=== PATIENT | female | born 1955 | race African-American/Black ===

== ENCOUNTER 2017-08-14 22:30 | Inpatient (IN) | payer BC ==
[~2017-08-14] VITALS: Ht 157.5 cm; Wt 61.7 kg
--- NOTE | ~2017-08-14 | P ---
[facility] [place] [address] PROCEDURE REPORT Name: LENARD BUSTOS Room #: 207-P [facility] IN M.R.#: [id number] Admission: 08/15/17 Attend Phys: Brain Morgan MD Discharge: 08/16/17 Date of : 55 Report #: [id number] THIS REPORT FOR: //name// CC: Brain Santillan DATE OF SERVICE: 08/16/2017 PROCEDURE: Colonoscopy with biopsy. INDICATION FOR PROCEDURE: Painless hematochezia of undetermined etiology and family history of colon cancer in her mother and maternal grandmother. Informed consent for this procedure was obtained prior to the administration of any medication. The risks of the procedure which include bleeding, perforation, infection, complications of sedation and the possibility I could miss something have been explained to the patient. She has indicated her consent by signing. DESCRIPTION OF PROCEDURE: Propofol was slowly titrated before and during this procedure for patient comfort by the anesthesia service. The zeroboundn colonoscope was introduced through the anal sphincter and advanced under direct visualization to the terminal ileum. Findings are noted on withdrawal of the scope. The terminal ileum mucosa appears normal. Cecum, normal mucosa. Ascending colon, a single uncomplicated diverticulum is noted in the ascending colon. Retroflex view in the ascending colon did not reveal any abnormalities. Hepatic flexure, normal mucosa. Transverse colon, normal mucosa. At the splenic flexure, there was a small 3-4 mm polyp removed in toto with the regular biopsy forceps and sent to pathology lab. Good hemostasis was noted after that biopsy. There was also some nodular mucosa at this area. Biopsies were obtained for histopathology. Good hemostasis was noted after those biopsies. Descending colon, uncomplicated diverticulosis. Sigmoid colon, uncomplicated diverticulosis. At approximately 28 cm in the sigmoid colon, there was a small 3-4 mm polyp removed in toto with the regular biopsy forceps and sent to pathology lab. Good hemostasis was noted after that polypectomy and as mentioned, multiple diverticula noted in the distal sigmoid colon. Rectum, normal mucosa. Retroflex view did not reveal any further abnormalities. The scope was withdrawn. The patient went to the recovery area in stable condition. She tolerated the procedure well. IMPRESSION: 1. Uncomplicated left-sided diverticulosis and a single uncomplicated diverticulum in the right colon. [address] [address] PROCEDURE REPORT Name: LENARD BUSTOS Room #: 207-P [facility] IN M.R.#: [id number] Admission: 08/15/17 Attend Phys: Brain Morgan MD Discharge: 08/16/17 Date of : 55 Report #: [id number] 2. Two polyps removed, one from the splenic flexure and one from 28 cm from the anal verge and sent to pathology. 3. Nodular splenic flexure, biopsied. RECOMMENDATIONS: To await the path report. We will monitor H and H closely and observe for further GI blood loss. I think that most likely the source of the bleeding that she had that was painless was likely the diverticulosis and it is not bleeding at this time. <ELECTRONICALLY SIGNED> By: Ryann Hall DO 08/17/17 0017 [id number] [id number] Ryann Hall DO /nt
--- NOTE | ~2017-08-14 | S ---
[facility] [place] [address] SURGICAL PATH RPT PROCEDURE Name: LIVIA TATE Room #: 207-P DIS IN M.R.#: [id number] Admission: 08/15/17 Date of : 55 Discharge: 08/16/17 Report #: [id number] Path Case #: [id number] PATHOLOGY REPORT COLLECTION DATE: 08/16/2017 RECEIVED DATE: 08/16/2017 SUBMITTING PHYS: Dr. Ryann Hall OTHER PHYS: Dr. Phoenix Mak SPECIMEN(S) RECEIVED: A.Splenic flexure polyp B.Small nodules at splenic flexure C.Colon polyp at 28 cm * * * * * * * * * * * * FINAL DIAGNOSIS: A. Colon, "splenic flexure", biopsy: - Colonic mucosa with moderate chronic inflammation and mild hyperplastic changes. B. Colon, "small nodule at splenic flexure", biopsy: - Colonic mucosa with moderate chronic inflammation, mild hyperplastic changes, and submucosal lymphoid aggregate. C. Colon, 28 cm, biopsy: - Hyperplastic polyp. - Mild to moderate chronic inflammation. (SKM:jazlyn; 08/17/2017) PATHOLOGIST: Loren Raymundo M.D. REPORT ELECTRONICALLY SIGNED BY: Loren Raymundo M.D. DATE/TIME: 08/17/2017 14:07 * * * * * * * * * * * * GROSS PATHOLOGY: A. Received in formalin labeled "Livia Tate and polyp splenic flexure," is a segment of colon soft tissue measuring 0.4 x 0.2 cm in maximum dimension. The specimen is submitted entirely in cassette A1. B. The specimen is received in formalin, labeled "Livia Tate and small nodule at splenic flexure", is a colon soft tissue 0.5 x 0.3 x 0.2 cm, entirely submitted in B1. C. Received in formalin labeled "Livia Tate and biopsy of polyp at 28 cm," is a segment of colon soft tissue measuring 0.3 x 0.2 cm in maximum dimension. The specimen is submitted entirely in cassette C1. (SWS; 08/16/2017) [address] [address] [place] [address] SURGICAL PATH RPT PROCEDURE Name: LIVIA TATE Room #: 207-P [facility] IN M.R.#: [id number] Admission: 08/15/17 Date of : 55 Discharge: 08/16/17 Report #: [id number] Path Case #: [id number] CLINICAL HISTORY: Hematochezia, anemia INITIAL CPT CODE(S): A; 31296 B; 89013 C; 39876 Professional services performed by [facility] at [address], [place] [address] Technical services performed by [facility] at [address] [place] [address], [facility] [address] [address]. [facility] [address] [place] [address] PHONE: [phone] DIRECTOR: Albert W. Shukri, M.D. * * * END OF REPORT * * *
--- NOTE | ~2017-08-14 | HC ---
[facility] [place] [address] CONSULTATION Name: LENARD BUSTOS Room #: 207-P ADM IN M.R.#: [id number] Admission: 08/15/17 Attend Phys: Brain Morgan MD Discharge: Date of : 55 Report #: [id number] THIS REPORT FOR: //name// CC: Brain Mak MD DATE OF SERVICE: 08/15/2017 PATIENT OF: Dr. Ayan Mak and Dr. Brain Morgan. CHIEF COMPLAINT: This is a very pleasant 62-year-old -[place] female whom I am asked to evaluate for possible etiologies of painless hematochezia. The patient states that her bleeding started last night after she had a bout of diarrhea. There was no pain involved. She has had several stools through the night. Her hemoglobin was 9.8 on admission and she dropped down to 7.3 and received 1 unit of packed cells and this morning, she is up to 8.4. She has not had any bloody stools for 8 hours at this time. PAST MEDICAL HISTORY: Significant for chronic kidney disease. She has a creatinine of 4.0 and apparently has been following with a senior mechanical project engineer who has since retired. She says the last time she saw him was 3-4 months ago. She does not know what her creatinine level was at that time. She has a history of asthma, hypertension, and hyperlipidemia. PAST SURGICAL HISTORY: Significant for removal of a cyst on her right dorsal foot. ALLERGIES: No known drug allergies. MEDICATIONS: Prior to admission included only lisinopril. SOCIAL HISTORY: She does not smoke. She does not drink alcohol. She has never had a blood transfusion until today. FAMILY HISTORY: Significant for colon cancer in her mother and in her maternal grandmother. There is no history of Crohn's disease or ulcerative colitis. REVIEW OF SYSTEMS: She denies any dysphagia, odynophagia, gastroesophageal reflux, hiatal hernia, or peptic ulcer disease. She has had some nausea, but no vomiting. Her weight has gone down without any explanation recently. She denies any hematemesis or melena. She has had hematochezia that is painless as described above. She has never had a colonoscopy, so she does not know if she has had any history of colon polyps or colon cancer or diverticulosis in the [address] [address] CONSULTATION Name: LENARD BUSTOS Room #: 207-P [facility] IN ..#: [id number] Admission: 08/15/17 Attend Phys: Brain Morgan MD Discharge: Date of : 55 Report #: [id number] past. She denies any abdominal pain. She denies any history of jaundice, hepatitis, cholelithiasis, cholecystitis, or pancreatitis. PHYSICAL EXAMINATION: GENERAL: Reveals a well-developed, well-nourished 62-year-old -[place] female, in no apparent distress, at the time of the examination, she is awake, alert, oriented x4 and cooperative and pleasant to converse with. HEENT: She appears normocephalic and atraumatic and anicteric. HEART: Rate and rhythm are regular with a normal S1 and S2. LUNGS: Clear bilaterally. ABDOMEN: Soft. Bowel sounds are present in all 4 quadrants. There is no palpable organomegaly or mass. There is no tenderness, rebound, or guarding. EXTREMITIES: Warm and dry. No peripheral cyanosis, clubbing, or edema. NEUROLOGIC: She appears grossly intact without lateralizing signs. SIGNIFICANT LABORATORY DATA: On admission, creatinine was 4.0, it is down to 3.7 overnight. Iron saturation is 18%. INR is 1.2. White count 6.5, hemoglobin is 8.4, platelets 180,000. She has 16.2% eosinophils. Ferritin is normal. B12 is pending. IMPRESSION: 1. Painless hematochezia. The differential diagnosis includes diverticular bleeding, bleeding arteriovenous malformation, polyp bleed, colon cancer bleed, internal hemorrhoidal bleed, peptic ulcer disease, Dieulafoy lesion, varices, this bleeding was preceded by a bout of nonbloody diarrhea. 2. Normocytic normochromic anemia, hemoglobin 8.4 after 1 unit of packed cells. This is acute gastrointestinal blood loss. 3. Acute on chronic renal insufficiency, creatinine 4.0, BUN 53, potassium is 4.5, sodium 142, CO2 is 26. The patient has been taking lisinopril. She says her senior mechanical project engineer has retired and she has not seen him for 3-4 months. 4. Recent unexplained weight loss. 5. Asthma. 6. Hypertension. 7. Hyperlipidemia. 8. Family history of colon cancer in her mother and maternal grandmother. RECOMMENDATIONS: My recommendations are as follows: 1. The patient will need a colonoscopy, then we will prep her today and scope her tomorrow. We will scope her sooner if she rebleeds and is critical. 2. We will monitor her intake and output. I would recommend renal consultation if she does not have a senior mechanical project engineer now and needs one. We would avoid IV contrast at all cost at this point. 3. Control hypertension. 4. Control lipids. 5. We will monitor H and H q.6 hours and transfuse as necessary. [address] [place] [address] CONSULTATION Name: LENARD BUSTOS Room #: 207-P ADM IN M.R.#: [id number] Admission: 08/15/17 Attend Phys: Brain Morgan MD Discharge: Date of : 55 Report #: [id number] Thank you very much once again for allowing me to participate in her care, Dr. Morgan and Dr. Mak. <ELECTRONICALLY SIGNED> By: Ryann Hall DO 08/15/17 1706 1038 [id number] Ryann Hall DO /nt
[~2017-08-14 22:30] MED LIST: HYDROCHLOROTHIA25 M2 GT; LIPITOR20 MG PO; PREDNISONE 10 M10 MG PO; PROVENTIL IH
[2017-08-14 22:31] VITALS: BP 181/96
[2017-08-14] MEDS ORDERED: LISINOPRIL20 MG PO (23:07)
[2017-08-14 23:09] LABS: ABSOLUTE NEUTROPHILS 3.3 thou/uL (1.4-8.2); EOSINOPHILS 16.2 % (0.0-3.0); HEMATOCRIT 29.9 % (37.0-47.0); HEMOGLOBIN 9.8 gm/dL (12.0-15.0); LYMPHOCYTES 24.6 % (24.0-44.0); MANUAL DIFF NO; MCH 30.8 pg (26.0-34.0); MCHC 32.7 g/dL (28.0-37.0); MCV 94.3 fL (80.0-100.0); MONOCYTES 8.6 % (1.0-8.0); PLATELET COUNT 233 thou/uL (150-400); POLYS 49.6 % (36.0-66.0); RBC 3.17 mil/uL (4.20-5.00); RDW 13.4 % (10.5-14.5); WBC 6.7 thou/uL (4.0-11.0)
[2017-08-14 23:16] LABS: CALCIUM 7.9 mg/dL (8.5-10.1); POTASSIUM 4.5 mmol/L (3.5-5.1)
[2017-08-14 23:20] LABS: APTT 27.6 Seconds (24.5-32.8); INR 1.2
[2017-08-15] VITALS (7 sets, daily range): BP systolic 138–189; BP diastolic 86–107
[2017-08-15 03:14] LABS: HEMATOCRIT 22.5 % (37.0-47.0); MCH 30.7 pg (26.0-34.0); MCHC 32.3 g/dL (28.0-37.0); RBC 2.37 mil/uL (4.20-5.00); RDW 13.3 % (10.5-14.5); WBC 6.5 thou/uL (4.0-11.0)
[2017-08-15 03:17] LABS: HEMOGLOBIN 7.3 gm/dL (12.0-15.0)
[2017-08-15 04:31] LABS: % SATURATION 18 % (20-39); IRON 33 ug/dL (50-170); TIBC 185 ug/dL (250-450); UIBC 152 ug/dL
[2017-08-15 08:20] LABS: CALCIUM 7.4 mg/dL (8.5-10.1); CREATININE 3.7 mg/dL (0.6-1.0); POTASSIUM 4.9 mmol/L (3.5-5.1)
[2017-08-15 08:37] LABS: HEMATOCRIT 26.2 % (37.0-47.0); HEMOGLOBIN 8.4 gm/dL (12.0-15.0)
[2017-08-15 12:30] LABS: HEMATOCRIT 24.8 % (37.0-47.0); HEMOGLOBIN 8.1 gm/dL (12.0-15.0)
[2017-08-15 15:33] LABS: URINE BILIRUBIN NEGATIVE (Negative); URINE BLOOD TRACE (Negative); URINE COLOR YELLOW; URINE GLUCOSE-RANDOM* NEGATIVE (Negative); URINE KETONES NEGATIVE (Negative); URINE NITRITE NEGATIVE (Negative); URINE PROTEIN (DIPSTICK) 2+ (Negative); URINE SPECIFIC GRAVITY 1.015 (1.003-1.035); URINE UROBILINOGEN 0.2 E.U./dl (0.2-1.0)
[2017-08-15 15:38] LABS: BACTERIA >30 Many /HPF (None Seen); CASTS None Seen /LPF (None Seen); CRYSTALS None Seen /LPF (None Seen); SQUAMOUS 0-3 Few /LPF (0-3); URINE RBC 0-2 Rare /HPF (0-2)
[2017-08-15 15:42] LABS: URINE CREATININE-RANDOM* 68.2 mg/dL; URINE PROTEIN-RANDOM* 84.1 mg/dL (<11.9)
[2017-08-15 16:18] LABS: SMEAR FOR EOSINOPHILS Rare per HPF
[2017-08-15 17:53] LABS: HEMATOCRIT 24.6 % (37.0-47.0)
[2017-08-15 22:42] LABS: HEMATOCRIT 24.4 % (37.0-47.0); HEMOGLOBIN 8.1 gm/dL (12.0-15.0)
[2017-08-16 00:45] VITALS: BP 170/102
[2017-08-16 03:01] LABS: BASOPHILS 0.6 % (0.0-2.0); EOSINOPHILS 8.3 % (0.0-3.0); LYMPHOCYTES 17.5 % (24.0-44.0); MCH 30.5 pg (26.0-34.0); MCHC 33.3 g/dL (28.0-37.0); MCV 91.5 fL (80.0-100.0); MONOCYTES 5.7 % (1.0-8.0); PLATELET COUNT 169 thou/uL (150-400); POLYS 67.9 % (36.0-66.0); RBC 2.62 mil/uL (4.20-5.00); RDW 14.6 % (10.5-14.5); WBC 8.8 thou/uL (4.0-11.0)
[2017-08-16 03:05] LABS: MANUAL DIFF NO
[2017-08-16 03:15] LABS: ALBUMIN 2.5 g/dL (3.4-5.0); CALCIUM 7.6 mg/dL (8.5-10.1); CREATININE 3.2 mg/dL (0.6-1.0); PHOSPHORUS 2.6 mg/dL (2.5-4.9); POTASSIUM 4.1 mmol/L (3.5-5.1)
[2017-08-16 04:30] VITALS: BP 132/84
[2017-08-16 08:00] VITALS: BP 138/83
[2017-08-16 12:00] VITALS: BP 153/98
[2017-08-16 16:00] VITALS: BP 153/93
[2017-08-16 18:29] VITALS: BP 153/93
== END 2017-08-16 18:39 | disposition home or self-care (01) | DRG 378 ==
LOC: ER 22:30 → EROBS 08-15 00:25 → 2N 08-15 00:25 → ENTRNSPT 08-16 18:32 → 2N 08-16 18:39
PROVIDERS: Emergency Medicine; Hospitalist; Internal Medicine Gastroenterology; Nurse Practitioner Acute Care
PROC: 0DBL8ZX Excision of Transverse Colon, Via Natural or Artificial Opening Endoscopic, Diagnostic (ICD-10-PCS; principal; 2017-08-16)
PROC: 0DBN8ZX Excision of Sigmoid Colon, Via Natural or Artificial Opening Endoscopic, Diagnostic (ICD-10-PCS; principal; 2017-08-16)
DX: K57.31 Diverticulosis of large intestine without perforation or abscess with bleeding (principal); D62 Acute posthemorrhagic anemia; N17.9 Acute kidney failure, unspecified; N18.4 Chronic kidney disease, stage 4 (severe); J45.909 Unspecified asthma, uncomplicated; Z79.899 Other long term (current) drug therapy; E78.00 Pure hypercholesterolemia, unspecified; I12.9 Hypertensive chronic kidney disease with stage 1 through stage 4 chronic kidney disease, or unspecified chronic kidney disease; E78.5 Hyperlipidemia, unspecified; D72.1 Eosinophilia; Z80.0 Family history of malignant neoplasm of digestive organs; Z83.79 Family history of other diseases of the digestive system
CPT/HCPCS: 10081; 62110; 62900; 70005